=== PATIENT | male | born 1950 | race Caucasian/White ===

== ENCOUNTER 2023-05-28 11:56 | Emergency (ER) | payer BC, MEDICARE ==
--- NOTE | 2023-05-28 12:12 | ED ---
General Adult HPI - General Chief complaint: Extremity Injury, Upper Stated complaint: Dislocated L shoulder Time Seen by Provider: 05/28/23 12:02 Source: patient, RN notes reviewed, old records reviewed Mode of arrival: ambulatory Limitations: no limitations - History of Present Illness Initial comments: 72-year-old male [facility] from [facility] for evaluation of left shoulder dislocation. Patient had fallen yesterday at the grocery store. He had pain to the left shoulder overnight and was seen by orthopedics this morning. X-ray according to the patient was consistent with an anterior shoulder dislocation without fracture. Attempts at reduction were performed by the orthopedic surgeon with intra-articular lidocaine but were unsuccessful. Patient presenting for reduction, possible sedation. No other injury reported - Related Data Allergies Allergy/AdvReac Type Severity Reaction Status Date / Time No Known Allergies Allergy Verified 05/28/23 12:01 Review of Systems ROS Statement: Those systems with pertinent positive or pertinent negative responses have been documented in the HPI. ROS Other: All systems not noted in ROS Statement are negative. Past Medical History Past Medical History: Diabetes Mellitus, Hypertension History of Any Multi-Drug Resistant Organisms: None Reported Past Surgical History: No Surgical Hx Reported Past Psychological History: No Psychological Hx Reported Smoking Status: Never smoker Past Alcohol Use History: None Reported Past Drug Use History: None Reported General Exam Limitations: no limitations General appearance: alert, in no apparent distress Head exam: Present: atraumatic, normocephalic Eye exam: Present: normal appearance, PERRL ENT exam: Present: normal exam Neck exam: Present: normal inspection, tenderness. Absent: meningismus Respiratory exam: Present: normal lung sounds bilaterally. Absent: respiratory distress, wheezes Cardiovascular Exam: Present: regular rate, normal rhythm GI/Abdominal exam: Present: soft. Absent: distended, tenderness Extremities exam: Absent: full ROM (Deformity of the left shoulder consistent with anterior dislocation, distal pulses intact) Neurological exam: Present: alert, oriented X3, CN II-XII intact. Absent: motor sensory deficit Psychiatric exam: Present: normal affect, normal mood Skin exam: Present: warm, dry, intact. Absent: cyanosis, diaphoretic Course Vital Signs 05/28/23 11:58 Temperature 98 F Pulse Rate 106 H Respiratory 20 Rate Blood Pressure 192/117 O2 Sat by Pulse 99 Oximetry Procedures - Orthopedic Joint Reduction Joint #1 Consent Obtained: verbal consent Side: left Joint Reduction Location: shoulder Analgesia: none (Dilaudid and Toradol) Shoulder Technique Used (if applicable): scapula manipulation, external rotation Post-Reduction Neuro Exam: intact Post-Reduction Vascular Exam: intact Post Reduction X-Ray Obtained: Yes Post Reduction X-Ray Results: reduced Patient Tolerated Procedure: well Medical Decision Making - Medical Decision Making Was pt. sent in by a medical professional or institution (ALANA Mendoza, HADOOP ADMINISTRATOR, urgent care, hospital, or fpc...) When possible be specific @ -Sent in by orthopedics with left shoulder dislocation Did you speak to anyone other than the patient for history (EMS, parent, family, police, friend...)? What history was obtained from this source @ -No Did you review nursing and triage notes (agree or disagree)? Why? @ -I reviewed and agree with nursing and triage notes Were old charts reviewed (outside hosp., previous admission, EMS record, old EKG, old radiological studies, urgent care reports/EKG's, fpc records)? Report findings @ -No old charts were reviewed Differential Diagnosis (chest pain, altered mental status, abdominal pain women, abdominal pain men, vaginal bleeding, weakness, fever, dyspnea, syncope, headache, dizziness, GI bleed, back pain, seizure, CVA, palpatations, mental health, musculoskeletal)? @ -Not applicable EKG interpreted by me (3pts min.). @ -As above X-rays interpreted by me (1pt min.). @ -Postreduction x-ray showing satisfactory reduction CT interpreted by me (1pt min.). @CT ordered for orthopedics. Results pending U/S interpreted by me (1pt. min.). @ -None done What testing was considered but not performed or refused? (CT, X-rays, U/S, labs)? Why? @ -None What meds were considered but not given or refused? Why? @ -None Did you discuss the management of the patient with other professionals (professionals i.e. ALANA Mendoza, HADOOP ADMINISTRATOR, lab, RT, psych nurse, health and social care teacher, vp & general counsel, teacher, community resource officer, egg caser)? Give summary @ -Case discussed with Sienna causey for [facility] and requests CT after reduction for possible glenoid fracture Was smoking cessation discussed for >3mins.? @ -No Was critical care preformed (if so, how long)? @ -No Were there social determinants of health that impacted care today? How? (Homelessness, low income, unemployed, alcoholism, drug addiction, transportation, low edu. Level, literacy, decrease access to med. care, skilled nursing, rehab)? @ -No Was there de-escalation of care discussed even if they declined (Discuss DNR or withdrawal of care, Hospice)? DNR status @ -No What co-morbidities impacted this encounter? (DM, HTN, Smoking, COPD, CAD, Cancer, CVA, ARF, Chemo, Hep., AIDS, mental health diagnosis, sleep apnea, morbid obesity)? @ -None Was patient admitted / discharged? Hospital course, mention meds given and route, prescriptions, significant lab abnormalities, going to OR and other pertinent info. @ -[72-year-old male with shoulder dislocation sent in by orthopedics for reduction. I was able to give this patient Toradol and 0.5 mg of Dilaudid and was able to reduce the shoulder. He was placed in a sling. CT was ordered at the request of orthopedics patient will follow-up with orthopedics for further management. Undiagnosed new problem with uncertain prognosis? @ -No Drug Therapy requiring intensive monitoring for toxicity (Heparin, Nitro, Insulin, Cardizem)? @ -No Were any procedures done? @ -[Yes, shoulder reduction Diagnosis/symptom? @Left shoulder dislocation Acute, or Chronic, or Acute on Chronic? @ -Acute Uncomplicated (without systemic symptoms) or Complicated (systemic symptoms)? @ -Default Side effects of treatment? @ -No Exacerbation, Progression, or Severe Exacerbation? @ -No Poses a threat to life or bodily function? How? (Chest pain, [place], [place], pneumonia, PE, COPD, DKA, ARF, appy, cholecystitis, CVA, Diverticulitis, Homicidal, Suicidal, threat to staff... and all critical care pts) @ -No Disposition Clinical Impression: Dislocation of shoulder region Disposition: HOME SELF-CARE Condition: Fair Instructions (If sedation given, give patient instructions): Shoulder Dislocation (ED) Is patient prescribed a controlled substance at d/c from ED?: No Referrals: Lanette Ellison DO [Primary Care Provider] - 1-2 days Fran Frances MD [STAFF PHYSICIAN] - 1-2 days Time of Disposition: 12:53
[2023-05-28] MEDS: KETOROLAC 15 MG/ML 1 ML VIAL IVP STA (12:17)
[2023-05-28] MEDS: HYDROmorphone 0.5 MG/0.5 ML SYRINGE IVP STA (12:19)
--- NOTE | 2023-05-28 12:59 | XR ---
EXAMINATION TYPE: XR shoulder limited LT DATE OF EXAM: 05/28/2023 COMPARISON: None HISTORY: Reduction TECHNIQUE: AP left shoulder FINDINGS: Femoral head articulates with the glenoid. No acute fractures identified. Acromioclavicular junction appears normal. The acromial humeral joint space may have mild narrowing. IMPRESSION: 1. No acute osseous abnormality left shoulder. 2. Humeral head appears to articulate with the glenoid on this post reduction image.
--- NOTE | 2023-05-28 14:02 | CT ---
EXAMINATION TYPE: CT shoulder LT wo con DATE OF EXAM: 05/28/2023 COMPARISON: AP left shoulder HISTORY: Dislocation of shoulder (left) CT DLP: 637.6 mGycm Automated exposure control for dose reduction was used. Contrast: None Technique: Axial images 3 mm thick sections. Reconstructed images in the coronal and sagittal planes. FINDINGS: No acute fractures or dislocations are evident. Some nonspecific calcification may be within the joint space. There is narrowing of the glenohumeral joint space. Some humeral head spurring is present. Findings are compatible with moderate degenerativ e changes of the glenohumeral junction. There is spurring at the acromioclavicular junction with superior extension. IMPRESSION: 1. NO ACUTE FRACTURES OR DISLOCATIONS LEFT SHOULDER. 2. MODERATE DEGENERATIVE CHANGES GLENOHUMERAL JUNCTION. 3. CHRONIC CHANGES AT THE LEFT SHOULDER.
[2023-05-28 14:21] VITALS: BP 137/93; PULSE 100; RESP 18; TEMP 98.1
== END 2023-05-28 13:45 | disposition home or self-care (01) ==
LOC: EC 11:56
DX: S43.005A Unspecified dislocation of left shoulder joint, initial encounter (principal); W19.XXXA Unspecified fall, initial encounter; Y92.512 Supermarket, store or market as the place of occurrence of the external cause
CPT/HCPCS: 73020; 73200; 23650; 99284; 96374; 96375; J1885; J1170